=== PATIENT | female | born 1925 | race Caucasian/White ===

== ENCOUNTER 2016-09-19 21:59 | Emergency (ER) | payer MEDICARE, MEDICAID ==
[~2016-09-19 21:59] MED LIST: ASA CHILDREN'S81 MG PO; AZOPT; CARDIZEM CD180 MG PO; CORAL CALCIUM1 EAC2 PO; DAILY MULTIPLE1 EAC1 PO; DULCOLAX-DPS10 MG PO; EXELON1 EAC1 TP; FLEXERIL DPS5 MG PO; FOSAMAX70 MG PO; GLUCOSAMINE/CHO1 TAB PO; LACTULOSE20 GM/30 M PO; LOPRESSOR DPS50 MG PO; PACERONE400 MG PO; PRAVACHOL40 MG PO; PRILOSEC DPS20 MG PO; SENOKOT S1 TAB PO; SURFAK240 MG PO; THERA1 EACH PO; TIMOPTIC 0.5% DP5 ML; TRAVATAN2.5 ML; TYLENOL DPS325 MG PO; ULTRAM DPS50 MG PO; V-R WOMEN'S CO1 EACH PO; VITAMIN B-121000 MCG PO; VITAMIN E100 UNI1 PO; VITAMIN E400 UNIT PO; XARELTO15 MG PO; ZOFRAN4 MG PO; [UNRECOGNIZED DRUG - OTHER] PO
--- NOTE | 2016-09-25 07:51 | ER ---
ADMIT: 09/19/2016 RM/LOC: ER [facility] MR#: [id number] [id number] [place], [place] [id number] ANGEL IBLLY I [address] [place] [id number] Emergency Room Report SEX: F AGE: 89 : 1925 DATE: 09/19/2016 See T-sheet for complete H and P. ADDENDUM: An 89-year-old female, comes in complaining of high blood pressure and headache. She also states she is a little short of breath. The patient has a history of having some problems with blood pressure before, but is not currently on any medications as it sounds like her blood pressure is quite labile. She normally sees Dr. Vazquez for her care. She denies any chest pain and states that she just feels a little more short of breath with exertion. She denies any fevers, chills, nausea, or vomiting. She has not had any numbness, tingling, or weakness in any extremity. She did check her blood pressure this evening and it was almost 200 systolic and that is when she had a headache, so she came into the ER. PHYSICAL EXAMINATION: See T-sheet. EMERGENCY DEPARTMENT COURSE: EKG showed normal sinus rhythm, rate of 67, no signs of ST-elevation or acute [place]. Her CBC was normal. Chemistry showed a sodium 134, glucose 107, otherwise normal. Chest x-ray was done and compared to previous and actually looks improved from her previous chest x-rays and nothing acute. The patient was given clonidine 0.1 mg p.o. in the Emergency Department and her blood pressure improved and her headache resolved. She feels fine going home at this time. I will not be started her on a new antihypertensive medication at this time, but I have instructed her to check her blood pressure and contact her primary care physician's office with the values and to arrange for followup. DIAGNOSES: 1. Hypertension. 2. Headache. Ranjith Hankins MD/ vonnie JOB #: [id number] CC: Ranjith Hankins MD, Attending Physician UNKNOWN, Family Physician
== END 2016-09-20 02:30 | disposition home or self-care (01) ==
LOC: ER 21:59
DX: I10 Essential (primary) hypertension (principal); R51 Headache; Z90.710 Acquired absence of both cervix and uterus; Z79.82 Long term (current) use of aspirin; Z79.899 Other long term (current) drug therapy; Z88.8 Allergy status to other drugs, medicaments and biological substances

== ENCOUNTER 2016-09-27 23:30 | Emergency (ER) | payer MEDICARE, MEDICAID ==
--- NOTE | 2016-10-01 00:47 | ER ---
ADMIT: 09/27/2016 RM/LOC: ER [facility] MR#: [id number] [id number] [place], [place] [address] ANGEL BILLY I [address] [place] [address] Emergency Room Report SEX: F AGE: 89 : 1925 DATE: 09/27/2016 HISTORY OF PRESENT ILLNESS: The patient is an 89-year-old female with a past medical history of hypertension, came to the ER with feeling more short of breath while lying flat for the last day, especially in the last 1-1/2 hours and also feeling tired or weak. The patient also complains of some dry cough. The patient denies any chest pain or swelling or pain in the extremities. The patient also denies any change in the level of the activity or exertional pain or shortness of breath. PHYSICAL EXAMINATION: VITAL SIGNS: The patient had blood pressure of 170 over 90s, with heart rate of 68 and temperature of 98, respiratory rate of 24 and O2 saturation was 94% to 95% on room air. GENERAL: The patient was in no obvious distress, sitting in the bed, answering the question in full sentences. HEAD AND NECK: Negative and noncontributory. NECK: There is no bruit on the neck. CHEST: I hear some soft crackles at the bases on the posterior side. I did not hear any wheezing. HEART: S1 and S2 with some systolic murmur grade 2/6. It is mostly on the mitral area. ABDOMEN: Soft and nontender. No masses. EXTREMITIES: There is no swelling or tenderness of the extremities. The rest of the physical exam is noncontributory. X-ray shows chronic interstitial changes without any acute change. EKG did not show any ST or T changes or arrhythmias. Troponin I was negative. D- dimer was mildly elevated to 0.6 possibly age related variance. The patient received DuoNeb nebulizer, one treatment and was re-examined. The patient states after nebulizer she felt way better and she is at her baseline and is ready to go home. The patient's examination did not show any new symptoms. The patient is stable to be discharged to home and followed by the primary doctor. Zaid Santamaria MD/ vonnie JOB #: [id number] CC: Zaid Santamaria MD, Attending Physician Bj Vazquez MD, Family Physician
== END 2016-09-28 02:04 | disposition home or self-care (01) ==
LOC: ER 23:30
DX: R06.02 Shortness of breath (principal); I10 Essential (primary) hypertension; Z90.710 Acquired absence of both cervix and uterus

== ENCOUNTER 2016-10-01 21:11 | Emergency (ER) | payer MEDICARE, MEDICAID ==
--- NOTE | 2016-10-06 01:31 | ER ---
ADMIT: 10/01/2016 RM/LOC: ER [facility] MR#: [id number] [address] [facility] [address] [place], [place] [address] ANGEL BILLY I [address] [place] [id number] Emergency Room Report SEX: F AGE: 89 : 1925 DATE: 10/01/2016 BRIEF ADDENDUM: Please see my T-sheet for complete review of systems, past medical history, and physical exam. CHIEF COMPLAINT: High blood pressure. HISTORY OF PRESENT ILLNESS: A pleasant 89-year-old female, who presents with family after she took her blood pressure at home and found it to be in the 200 systolically. At present, she states she feels okay. Denies any fever, chills, chest pain, cough, heart racing, leg swelling, dizziness, or lightheadedness. She has been seen in the ER on September 19 and September 27 with similar complaints. She did have lab, EKG, and chest x-rays completed at these times all unremarkable. She does state she has some shortness of breath. However, she is not hypoxic. Past medical history for hypertension. She is on Xarelto, however, she is not sure why. Denies any history of any irregular rhythms or blood clots. COURSE IN THE EMERGENCY ROOM: The patient was seen and examined. She is afebrile and nontoxic. She is not hypoxic, 95% on room air. She is in no acute distress. She is alert. She is in no respiratory distress. Lungs are clear bilaterally. She does have some faint wheezes in the bases. She is speaking in full sentences. Heart is regular rate and rhythm. No murmurs, gallops, or rubs. Abdomen is soft and nontender. Skin is warm and dry. Skin, no pedal edema. She is alert and oriented. Appropriate with exam. I did give her a DuoNeb treatment today. States like this improved her breathing. I did discuss with her that I did not see a need to repeat lab or chest x-ray at this time. I doubt it was important for followup with primary care. She continues to come to the ER for this complaint. Her blood pressures were stable in the 150s throughout her visit today. I did prescribe her an albuterol inhaler with teaching today to use every 4 hours as needed ADMIT: 10/01/2016 RM/LOC: ER [facility] MR#: [id number] [address] [address] [place] [address] Emergency Room Report SEX: F AGE: 89 : 1925 for shortness of breath. IMPRESSION: 1. Hypertension. 2. Shortness of breath. DISPOSITION: The patient was given albuterol inhaler with teaching 1 to 2 puffs every 4 to 6 hours as needed for shortness of breath. She is to follow up with Dr. Vazquez as scheduled on the . Continue her home medications. Return with worsening signs or symptoms. Questions sought and answered to the best of my ability and to the patient's satisfaction. Discharged in stable condition. ADDY Terrazas / Ranjith Hanikns MD / kikol JOB #: [id number] CC: Ranjith Hankins MD, Attending Physician Sergio Dumont MD, Family Physician
== END 2016-10-02 00:03 | disposition home or self-care (01) ==
LOC: ER 21:11
DX: I10 Essential (primary) hypertension (principal); R06.02 Shortness of breath; Z79.899 Other long term (current) drug therapy; Z79.82 Long term (current) use of aspirin; Z90.710 Acquired absence of both cervix and uterus